=== PATIENT | female | born 1965 | race Two or more races ===

== ENCOUNTER 2017-01-26 09:05 | Emergency (ER) | payer BC ==
[~2017-01-26] VITALS: Ht 175.3 cm; Wt 108.9 kg
[2017-01-26] MEDS ORDERED: HYDROCODONE/APAP 5/325MG 1 EACH TABLET PO ONE (09:30)
[2017-01-26] MEDS ORDERED: HYDROCODONE/APAP 5/325MG 1 EACH TABLET ONE (09:34)
[2017-01-26] MEDS ORDERED: MORPHINE SULFATE INJ 10 MG/ML DISP.SYRIN ONE (10:43)
[2017-01-26] MEDS ORDERED: MORPHINE SULFATE INJ 2 MG/ML DISP.SYRIN IM ONE (11:00)
[2017-01-26 11:33] VITALS: BP 141/68
== END 2017-01-26 11:33 | disposition home or self-care (01) ==
LOC: ER 09:07
DX: S52.611A Displaced fracture of right ulna styloid process, initial encounter for closed fracture (principal); W01.0XXA Fall on same level from slipping, tripping and stumbling without subsequent striking against object, initial encounter; Y93.43 Activity, gymnastics; Y92.89 Other specified places as the place of occurrence of the external cause; Y99.9 Unspecified external cause status
CPT/HCPCS: 29125; 73080; 73090; 73110; 73130; 96372; 99284; A4606; J2270; Z7610

== ENCOUNTER 2025-07-18 23:29 | Inpatient (IN) | payer BC ==
[~2025-07-18] VITALS: Ht 172.7 cm; Wt 111.1 kg
[2025-07-18 23:34] VITALS: O2SAT 96
[2025-07-19 00:04] LABS: PLATELET COUNT (AUTO) 270 K/uL (150-450); RED BLOOD CELL COUNT(AUTO) 4.45 MIL/uL (4.0-5.2); RED CELL DISTRIBUTION WIDTH 13.6 % (11.5-15.0); WHITE BLOOD COUNT (AUTO) 6.7 K/uL (4.3-11.0)
[2025-07-19 00:08] LABS: APPEARANCE,URINE SLIGHTLY CLOUDY (CLEAR); BLOOD, URINE NEGATIVE Ery/uL (NEGATIVE); LEUKOCYTE ESTERASE ,URINE TRACE (NEGATIVE); NITRITE, URINE NEGATIVE (NEGATIVE); UGLUCOSE NEGATIVE (NEGATIVE)
[2025-07-19 00:12] LABS: ADD URINE CULTURE NO; SQUAMOUS EPITHELIAL CELL,UR Few /HPF (None Seen)
[2025-07-19 00:15] LABS: CALCIUM, SERUM 9.1 mg/dL (8.5-10.1); CREATININE 0.8 mg/dL (0.6-1.3); SODIUM SERUM 141.0 mmol/L (136-145); UREA NITROGEN, BLOOD 9.0 mg/dL (7-18)
[2025-07-19] MEDS ORDERED: KETOROLAC TROMETHAMINE INJ 30 MG/ML VIAL ONE (00:15)
[2025-07-19] MEDS ORDERED: ONDANSETRON HCL/PF 4 MG/2 ML VIAL ONE (00:15)
[2025-07-19] MEDS ORDERED: PANTOPRAZOLE 40 MG VIAL ONE (00:15)
[2025-07-19] MEDS ORDERED: PROCHLORPERAZINE EDISYLATE 10 MG/2 ML VIAL ONE (00:15)
[2025-07-19] MEDS ORDERED: dexaMETHasone SOD PHOSPHATE 1 ML ONE (00:15)
[2025-07-19] MEDS: PANTOPRAZOLE 40 MG VIAL IV ONE ×2 (00:27→14:00)
[2025-07-19] MEDS: dexaMETHasone SOD PHOSPHATE 10 MG/ML VIAL IV ONE (00:27)
[2025-07-19] MEDS: IV NS 0.9% 1,000 ML BAG IV ONE (00:27)
[2025-07-19] MEDS: PROCHLORPERAZINE EDISYLATE 10 MG/2 ML VIAL IVP ONE (00:28)
[2025-07-19] MEDS: KETOROLAC TROMETHAMINE INJ 30 MG/ML VIAL IV ONE (00:28)
[2025-07-19] MEDS: ONDANSETRON HCL/PF 4 MG/2 ML VIAL IVP ONE (00:28)
[2025-07-19 00:30] LABS: ASPARTATE AMINOTRANSFERASE 43.0 U/L (15-37); TOTAL PROTEIN, SERUM 7.1 g/dL (6.4-8.2)
[2025-07-19] MEDS ORDERED: IOHEXOL-300 100 ML VIAL IV ONE (01:01)
[2025-07-19] MEDS ORDERED: CT SWABBABLE VALVE TRANS SET 1 EA INFUS.SET MC ONE (01:01)
[2025-07-19] MEDS ORDERED: IV NS 0.9% 250 ML IV ONE (01:02)
[2025-07-19] MEDS ORDERED: MORPHINE SULFATE INJ 4 MG/ML DISP.SYRIN ONE (02:22)
[2025-07-19] MEDS ORDERED: SUMATRIPTAN SUCCINATE 6 MG/0.5 ML VIAL SQ ONE (02:22)
[2025-07-19] MEDS: SUMATRIPTAN SUCCINATE 6 MG/0.5 ML VIAL SQ ONE (02:32)
[2025-07-19] MEDS: MORPHINE SULFATE INJ 2 MG/ML DISP.SYRIN IV ONE (02:32)
[2025-07-19] MEDS ORDERED: ONDANSETRON HCL/PF 4 MG/2 ML VIAL IVP PRN (04:00)
[2025-07-19] MEDS ORDERED: HYDROCODONE/APAP 10/325MG TABLET PO PRN (04:00)
[2025-07-19] MEDS ORDERED: MAGNESIUM HYDROXIDE 30 ML UDC PO PRN (04:00)
[2025-07-19] MEDS ORDERED: MAG HYDROX/AL HYDROX/SIMETH 30 ML UDC PO PRN (04:00)
[2025-07-19] MEDS ORDERED: ACETAMINOPHEN 325 MG TABLET PO PRN (04:00)
[2025-07-19] MEDS: hydrALAZINE HCL IV 20 MG VIAL IV PRN (04:27)
[2025-07-19] MEDS ORDERED: TEMAZEPAM 7.5 MG CAPSULE PO PRN (04:30)
[2025-07-19 05:33] VITALS: BP 118/111; TEMP 98.1; O2SAT 97
[2025-07-19 06:07] VITALS: BP 153/105
[2025-07-19] MEDS: HYDROCODONE/APAP 5/325MG TABLET PO PRN (06:11)
[2025-07-19 07:30] VITALS: BP 164/100; TEMP 97.5; O2SAT 95
[2025-07-19] MEDS: PANTOPRAZOLE 40 MG TABLET.DR PO SCH (07:30)
[2025-07-19] MEDS ORDERED: METO25TA4 PO (08:13)
[2025-07-19] MEDS ORDERED: OXYC1TAB8 PO (08:13)
[2025-07-19 09:00] VITALS: BP 144/89
[2025-07-19] MEDS ORDERED: PANTOPRAZOLE 40 MG VIAL IV SCH (14:00)
[2025-07-19] MEDS ORDERED: PANT40TA2 PO (14:56)
[2025-07-19] MEDS ORDERED: PANTOPRAZOLE 40 MG TABLET.DR PO SCH (21:00)
[2025-07-19] MEDS ORDERED: METOPROLOL SUCCINATE 25 MG TAB.SR.24H PO SCH (22:00)
== END 2025-07-19 16:00 | disposition home or self-care (01) | DRG 392 ==
LOC: ER 23:30 → MED 07-19 02:39
PROVIDERS: ADMIT Nurse Practitioner Acute Care; ATTEND Nurse Practitioner Acute Care
DX: K21.9 Gastro-esophageal reflux disease without esophagitis (principal); Z98.1 Arthrodesis status; Z79.899 Other long term (current) drug therapy; T40.605A Adverse effect of unspecified narcotics, initial encounter; Y92.9 Unspecified place or not applicable; I10 Essential (primary) hypertension; F41.9 Anxiety disorder, unspecified; S91.109A Unspecified open wound of unspecified toe(s) without damage to nail, initial encounter; X58.XXXA Exposure to other specified factors, initial encounter; G89.29 Other chronic pain; E66.9 Obesity, unspecified; Z68.37 Body mass index [BMI] 37.0-37.9, adult; M20.41 Other hammer toe(s) (acquired), right foot; Z98.890 Other specified postprocedural states; Z53.20 Procedure and treatment not carried out because of patient's decision for unspecified reasons; R51.9 Headache, unspecified
CPT/HCPCS: 36415; 70450-TC; 72125-TC; 76705-TC; 80048-TC; 80076-TC; 81001; 83690-TC; 84484-TC; 85025-TC; G0378; J0360; J0780; J1100; J1885; J2270; J2405; J2470; J3030; J7050; Q9967